=== PATIENT | female | born 1990 | race Caucasian/White ===

== ENCOUNTER 2016-06-26 02:41 | Emergency (ER) | payer OTHER ==
[~2016-06-26] VITALS: Ht 154.9 cm; Wt 82.7 kg
[~2016-06-26 02:41] MED LIST: CLIN-73 PO; HYDR-3498 PO
[2016-06-26 02:47] VITALS: Ht 154.9 cm; Wt 82.7 kg
[2016-06-26] MEDS ORDERED: predniSONE 20 MG TAB PO ONE (06:30)
[2016-06-26] MEDS ORDERED: DIPHENHYDRAMINE 25 MG CAP PO ONE (06:30)
[2016-06-26] MEDS ORDERED: FAMOTIDINE 20 MG TAB PO ONE (06:30)
[2016-06-26] MEDS ORDERED: PRED20TA PO (06:47)
[2016-06-26] MEDS ORDERED: BEN25 PO (06:47)
[2016-06-26] MEDS ORDERED: FAMO-18 PO (06:47)
--- NOTE | 2016-06-26 07:42 | ERD ---
ER Documentation Chief Complaint Date/Time DATE: 06/26/16 TIME: 07:38 Chief Complaint Body rash, itching since 1300 yesterday. Denies airway compromise HPI 25-year-old female with no significant past medical history presents to the ED stating that she had some scattered body rashes yesterday at 8 PM. Reports that they are itchy. States that she is unsure if it is the food that she ate that caused this occurrence. Denies any new use of soaps or detergents. Denies any exposure to pets or insects. Denies any fever, chills, abdominal pain, nausea, vomiting, shortness of breath, lip swelling, tongue swelling. Denies others having the same rash. ROS All systems reviewed and are negative except as per history of present illness. Medications Home Meds Active Scripts Famotidine* (Pepcid*) 20 Mg Tablet, 20 MG PO BID for 4 Days, #30 TAB Prov:STEVEN ALDANA PA-C 06/26/16 Diphenhydramine Hcl* (Benadryl*) 25 Mg Cap, 25 MG PO Q6 Y for ITCHING/RASH, #30 TAB Prov:STEVEN ALDANA PA-C 06/26/16 Prednisone* (Prednisone*) 20 Mg Tab, 40 MG PO DAILY for 4 Days, TAB Prov:STEVEN ALDANA PA-C 06/26/16 Clindamycin Hcl* (Clindamycin Hcl*) 300 Mg Capsule, 300 MG PO QID for 7 Days, CAP Prov:STEPHEN TURNER. 02/01/15 Hydrocodone Bit-Acetaminophen* (Askov*) 5-325 Mg Tab, 1 TAB PO Q6 Y for PAIN, # 10 TAB Prov:STEPHEN TURNER. 02/01/15 Allergies Allergies: Coded Allergies: No Known Allergy (Unverified , 02/01/15) PMhx/Soc Medical and Surgical Hx: pt denies Surgical Hx History of Surgery: No Hx Neurological Disorder: No Hx Respiratory Disorders: No Hx Cardiac Disorders: No Hx Psychiatric Problems: No Hx Miscellaneous Medical Probl: Yes (DYSLIPIDEMIA) Hx Alcohol Use: No Hx Substance Use: No Hx Tobacco Use: No Smoking Status: Never smoker Physical Exam Vitals Vital Signs Date Time Temp Pulse Resp B/P Pulse Ox O2 Delivery O2 Flow Rate FiO2 06/26/16 02:47 98.1 115 18 131/92 98 Physical Exam Const: Yaz-qid-[id number], well-nourished. In no acute distress. Head: Atraumatic, normocephalic Eyes: Normal Conjunctiva without injection. No purulent discharge. PERRL. EOMI ENT: Normal external ear. Ear canal without erythema. Tympanic membrane pearly fiore without effusion or bulging. Nasal canal clear with normal turbinates. Moist oropharynx without tonsillar exudates. Non-erythematous pharynx. Uvula midline. No drooling. No trismus. Neck: Full range of motion. No meningismus. No cervical lymphadenopathy. Resp: Clear to auscultation bilaterally. No wheezing, rhonchi, rales, or crackles. No accessory muscle use. No retractions. Cardio: Regular rate and rhythm. No murmurs, rubs or gallops. Abd: Soft, non tender, non distended. Normal bowel sounds. No palpable masses. No rebound tenderness. No guarding. Skin: No petechiae, purpura. Erythematous blanching wheals noted on the right upper back and bilateral upper extremities. No purulent discharge. No bleeding , fluctuance, induration noted. Back: No midline tenderness. No CVA tenderness. Ext: No cyanosis, or edema. Neur: Awake and alert. Psych: Normal Mood and Affect Results 24 hrs Current Medications Medications (Trade) Dose Ordered Sig/Ramo Route PRN Reason Start Time Stop Time Status Last Admin Dose Admin Prednisone (Prednisone) 60 mg ONCE ONCE PO 06/26/16 06:30 06/26/16 06:31 DC 06/26/16 06:31 Diphenhydramine HCl (Benadryl) 25 mg ONCE ONCE PO 06/26/16 06:30 06/26/16 06:31 DC 06/26/16 06:33 Famotidine (Pepcid) 20 mg ONCE ONCE PO 06/26/16 06:30 06/26/16 06:31 DC 06/26/16 06:31 Procedures/MDM 25-year-old female presents the ED complaining of a rash that started yesterday. Patient is afebrile and nontoxic-appearing. Patient has normal vital signs. Patient's rash is likely secondary to urticaria due to an unknown allergen. Patient was treated here in the ED with 125 mg IM Solu-Medrol, famotidine, Benadryl with improvement of her symptoms. I strictly instructed patient to follow-up with a primary care physician for referral for allergy testing. Low suspicion for anaphylaxis, allergic contact dermatitis, cutaneous candidiasis, eczema, scabies, tinea infection, erythema multiforme, psoriasis, SJS/TEN, sepsis, cellulitis, necrotizing fascitis, or other emergent conditions. Discharge medications: Prednisone, Famotidine, Benadryl Follow up with primary care physician in 1-2 days. Instructed patient to return to the ED sooner for any worsening symptoms. Patient's questions were answered. Patient understood and agreed with discharge plan. Patient discharged stable. Departure Diagnosis: Primary Impression: Urticaria Condition: Stable Patient Instructions: Hives Referrals: [facility] YOU HAVE RECEIVED A MEDICAL SCREENING EXAM AND THE RESULTS INDICATE THAT YOU DO NOT HAVE A CONDITION THAT REQUIRES URGENT TREATMENT IN THE EMERGENCY DEPARTMENT. FURTHER EVALUATION AND TREATMENT OF YOUR CONDITION CAN WAIT UNTIL YOU ARE SEEN IN YOUR DOCTORS OFFICE WITHIN THE NEXT 1-2 DAYS. IT IS YOUR RESPONSIBILITY TO MAKE AN APPOINTMENT FOR [facility]ARE. IF YOU HAVE A PRIMARY DOCTOR --you should call your primary doctor and schedule an appointment IF YOU DO NOT HAVE A PRIMARY DOCTOR YOU CAN CALL OUR PHYSICIAN REFERRAL HOTLINE AT IF YOU CAN NOT AFFORD TO SEE A PHYSICIAN YOU CAN CHOSE FROM THE FOLLOWING [facility] [address] [facility]. [facility] [address] [facility] [facility] [address] [facility] [facility] [address] [facility] [facility] [address] [facility]. [facility]. [address] [facility]. [facility] YOU HAVE RECEIVED A MEDICAL SCREENING EXAM AND THE RESULTS INDICATE THAT YOU DO NOT HAVE A CONDITION THAT REQUIRES URGENT TREATMENT IN THE EMERGENCY DEPARTMENT. FURTHER EVALUATION AND TREATMENT OF YOUR CONDITION CAN WAIT UNTIL YOU ARE SEEN IN YOUR DOCTORS OFFICE WITHIN THE NEXT 1-2 DAYS. IT IS YOUR RESPONSIBILITY TO [facility] AN AP[facility]. IF YOU HAVE A PRIMARY DOCTOR --you should call your primary doctor and schedule and appointment IF YOU DO NOT HAVE A PRIMARY DOCTOR YOU CAN CALL OUR PHYSICIAN REFERRAL HOTLINE AT . IF YOU CAN NOT AFFORD TO SEE A PHYSICIAN YOU CAN CHOSE FROM THE FOLLOWING [facility] INSTITUTIONS: [facility] [place] [address] [place] [address] [facility] [address] [place] [address] [facility] [address] [place] [address] [facility]/SPECIALTIES Additional Instructions: FOLLOW UP WITH YOUR PRIMARY CARE PHYSICIAN TOMORROW for a referral to an mineral surveying technician for allergy testing. Return to this facility if you are not improving as expected. STEVEN ALDANA PA-C Jun 26, 2016 07:42 STEVEN ALDANA PA-C Jun 26, 2016 07:42
== END 2016-06-26 07:05 | disposition home or self-care (01) ==
LOC: FTE 02:41
DX: L50.9 Urticaria, unspecified (principal)
CPT/HCPCS: J7512; Z7502; Z7610; 99283